=== PATIENT | female | born 1995 | race Caucasian/White ===

== ENCOUNTER → 2022-07-03 07:14 | Outpatient (CLI) | payer OTHER, SELFPAY ==
--- NOTE | 2022-07-03 | DI.MRI.S_ITS ---
PROCEDURE: MR LUMBAR SPINE WO CON INDICATIONS: Dorsalgia, unspecified TECHNIQUE: Noncontrast sagittal T1 spin echo and T2 fast echo, sagittal STIR, and T2 fast spin echo through the lumbar spine. In cases with scoliosis, additional coronal T2 fast spin echo may be performed. COMPARISON: [facility], CR, XR LUMBAR SPINE WITH FLEXION EXTENSION 5 VIEWS, 05/17/2022, 8:13. FINDINGS: Image quality: Excellent. Alignment and Curvature: There is normal bony alignment. 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 Minimal partial segmentation anomaly is noted at the posterior aspect of the T12 vertebral body. Marrow is of normal overall signal. No acute vertebral body compression fractures. Spinal Cord: Conus medullaris terminates at the L1 level. Visualized cord demonstrates normal signal and size. Paraspinous Soft Tissues: No paravertebral masses. The paraspinous musculature is normal in bulk. T12-L1: Normal appearance. L1-L2: Normal appearance. L2-L3: Normal appearance. L3-L4: Congenitally small disc space and partial osseous fusion with congenitally small bilateral neural foramina but no significant external compression or impingement upon the nerve roots. No spinal canal narrowing. L4-L5: Moderate bilateral facet hypertrophy is seen resulting in mild narrowing of the bilateral neural foramina without significant spinal canal stenosis. L5-S1: Small posterior annular fissure with central disc protrusion and mild bilateral facet hypertrophy. There is mild crowding of the bilateral lateral recesses with disc material abutting the traversing S1 nerve roots bilaterally. Mild narrowing of the bilateral neural foramina is seen without significant spinal canal stenosis. IMPRESSION: 1. At L5-S1, posterior annular fissure and central disc protrusion resulting crowding of the lateral recesses with disc material abutting the traversing S1 nerve roots in the lateral recesses bilaterally without definite impingement as positioned on this exam. There is also mild neural foraminal narrowing this level without spinal canal stenosis. 2. At L4-5, moderate facet hypertrophy result in mild narrowing of the bilateral neural foramina without spinal canal stenosis. 3. 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 Approved by: Sylvester Quintero M.D. on 07/03/2022 at 10:24
== END ==
PROVIDERS: Referring Provider Orthopaedic Surgery Orthopaedic Surgery of the Spine; Visit Provider Orthopaedic Surgery Orthopaedic Surgery of the Spine
DX: M51.27 Other intervertebral disc displacement, lumbosacral region (principal); M54.9 Dorsalgia, unspecified; M47.816 Spondylosis without myelopathy or radiculopathy, lumbar region
CPT/HCPCS: 72148

== ENCOUNTER → 2022-08-06 12:43 | Outpatient (CLI) | payer OTHER, SELFPAY ==
--- NOTE | 2022-08-06 | DI.RAD.S_ITS ---
PROCEDURE: FL HIP INJECTION MR/CT LT INDICATIONS: ACUTE LEFT HIP PAIN TECHNIQUE: The indications, alternatives, benefits, risks, and complications of the procedure were explained to the patient. Written informed consent was obtained and placed in the chart. The hip was examined fluoroscopically with the legs fixed in slight internal rotation, and a site for needle placement chosen for entry into the hip joint from an anterior approach. Care was taken to locate the common femoral artery and vein beforehand. The skin was prepped and draped in a sterile fashion, and 1% Lidocaine infiltrated from skin down to joint capsule. A spinal needle was inserted into the joint, and a small amount of iodinated contrast media injected to confirm intra-articular placement of the needle tip. This was followed by approximately 10 mL dilute solution of a gadolinium containing MR contrast agent. The needle was removed and a dressing was applied. The patient was given postprocedural instructions and sent to the MR suite for imaging. COMPARISON: None. FINDINGS: A single fluoroscopic spot image demonstrates intra-articular location of injected iodinated contrast. IMPRESSION: Successful fluoroscopically guided administration of dilute Gadolinium solution into the hip joint for MR arthrogram. Dictated by: Doug Ware M.D. on 08/06/2022 at 16:09 Approved by: Doug Ware M.D. on 08/06/2022 at 16:10
--- NOTE | 2022-08-06 13:15 | DI.MRI.S_ITS ---
PROCEDURE: MR HIP LT W CON INDICATIONS: ACUTE LEFT HIP PAIN TECHNIQUE: After the administration of 10 mL of dilute intra-articular Gadolinium contrast, coronal STIR of the bony pelvis; coronal and oblique axial T1 spin echo with fat saturation, axial T2 fast spin echo with fat saturation, sagittal T1 spin echo with and without fat saturation of the involved hip. COMPARISON: None. FINDINGS: Image quality: Excellent. Bones and joints: Bone marrow of the pelvic ring and proximal femurs show normal signal throughout. No intraosseous lesions or fractures. Mild prominence of superior anterior left femoral head neck junction is seen which can be seen associated with CAM type femoral acetabular impingement. No avascular necrosis of the femoral head. The visualized lower lumbar spine appears normally aligned. The ligamental, neck, and labral plicae appear normal where visualized. Tendons and ligaments: The gluteus medius and minimus tendons appear intact, without associated muscle atrophy. The nearby proximal iliotibial band also appears intact. The iliopsoas tendon appears intact, without adjacent bursal fluid collections or evidence for impingement syndrome. The origin of the hamstring tendon is intact at the ischial tuberosity, as well as the associated sacrotuberous ligament. The straight and reflected heads of the rectus femoris muscle origin appear intact, as well as the conjoint tendon. The ligamentum teres appears intact where visualized. Labrum and cartilage: Subtle area of contrast extension in superior anterior labrum at 12 to 1 o'clock position is seen concerning for subtle superior anterior labral tear. Cartilage surface of the femoral head appears of normal thickness. No paralabral cysts. The alpha angle of the femur is within normal limits at less than 55 degrees. Soft tissues: Visualized muscles demonstrate normal bulk and internal signal. Quadratus femoris muscle demonstrates no internal edema to suggest ischiofemoral impingement. The proximal sciatic neurovascular bundle appears normal adjacent to the hamstring tendons. No free pelvic fluid. Bladder wall thickness is normal. Genitourinary structures and bowel loops appear normal where visualized. IMPRESSION: 1. Mild prominence of superior anterior left femoral head neck junction which can be seen associated with CAM type femoral acetabular impingement. No marrow edema. No fracture or dislocation. No evidence of avascular necrosis of femoral head. 2. Suggestion of subtle superior anterior left hip labral tear at 12 to 1 o'clock position. 3. No gross muscle or tendon signal abnormality. Dictated by: Ehsan Thurston M.D. on 08/06/2022 at 16:31 Approved by: Ehsan Thurston M.D. on 08/06/2022 at 16:32
== END ==
PROVIDERS: Referring Provider Orthopaedic Surgery; Visit Provider Orthopaedic Surgery
DX: M25.552 Pain in left hip (principal)
CPT/HCPCS: 27093; 73722; 77002

== ENCOUNTER → 2022-09-24 10:53 | Outpatient (CLI) | payer OTHER, SELFPAY ==
--- NOTE | 2022-09-24 10:54 | DI.RAD.S_ITS ---
PROCEDURE: XR HIP W PEL IF DONE RT 2V INDICATIONS: Right hip pain TECHNIQUE: AP pelvis with lateral view of the right hip. COMPARISON: [facility], MR, MR HIP LT W CON, 08/06/2022, 13:37. [facility], CR, XR PELVIS WITH LATERAL HIP LEFT, 07/26/2022, 9:04. FINDINGS: Bones: No acute fractures or dislocations. Pelvic ring appears intact. No suspicious bony lesions. Soft tissues: The visualized bowel gas pattern is normal. No suspicious soft tissue calcifications. IMPRESSION: No acute osseous abnormality. If the symptoms persist, consider cross sectional imaging such as MRI or CT for further assessment. Approved by: Sylvester Quintero M.D. on 09/24/2022 at 13:09
== END ==
PROVIDERS: Referring Provider Anesthesiology; Visit Provider Anesthesiology
DX: M25.551 Pain in right hip (principal); M25.552 Pain in left hip; M79.18 Myalgia, other site; M54.50 Low back pain, unspecified; M54.6 Pain in thoracic spine
CPT/HCPCS: 20552; 73502; 76942; 99213; J3301

== ENCOUNTER → 2022-10-15 11:08 | Outpatient (CLI) | payer OTHER, SELFPAY ==
[2022-10-15 11:59] LABS: C-Reactive Protein Quant < 0.5 mg/dL (<1.0)
[2022-10-15 12:00] LABS: Rheumatoid Factor 9.3 IU/mL (<12.0)
[2022-10-15 12:25] LABS: Erythrocyte Sedimentation Rate 4 MM/HR (0-20)
[2022-10-17 17:13] LABS: CCP Antibodies IgG/IgA 6 units (0-19)
[2022-10-18 18:12] LABS: ANA Screen, IFA Positive (.)
== END ==
PROVIDERS: PCP Physician Assistant; Referring Provider Anesthesiology; Visit Provider Anesthesiology
DX: M51.24 Other intervertebral disc displacement, thoracic region (principal); M25.551 Pain in right hip
CPT/HCPCS: 36415; 85651; 86038; 86140; 86200; 86430; 99214

== ENCOUNTER → 2022-10-22 16:16 | Outpatient (CLI) | payer OTHER, SELFPAY ==
--- NOTE | 2022-10-22 16:20 | DI.MRI.S_ITS ---
PROCEDURE: MR HIP RT WO CON INDICATIONS: Chronic right hip pain TECHNIQUE: Noncontrast coronal T1 spin echo and STIR through the bony pelvis. Coronal and axial T2 fast spin echo with fat saturation, sagittal T1 spin echo, and oblique axial T2 fast spin echo with fat saturation through the hip. COMPARISON: [facility], CR, XR HIP W PEL IF DONE RT 2V, 09/24/2022, 10:54. FINDINGS: Image quality: Excellent. Bones and joints: Bone marrow of the pelvic ring and proximal femurs show normal signal mildhout. No intraosseous lesions or fractures. No avascular necrosis of the femoral heads. Mild disc desiccation and facet hypertrophy in the included lumbar spine. Tendons and ligaments: The gluteus medius and minimus tendons appear intact, without associated muscle atrophy. The proximal iliotibial band appears intact. The iliopsoas tendon appears intact, without adjacent bursal fluid collections. The origin of the hamstring tendon demonstrates mild tendinosis. The direct and indirect heads of the rectus femoris muscle origin appear intact. Labrum and cartilage: There is nondisplaced tearing of the anterior to superior labrum. A small paralabral cyst is seen anteriorly measuring approximately 8 x 3 mm. Cartilage surface of the femoral head appears of normal thickness. There is normal morphology of the femoral head and the acetabulum. Soft tissues: Visualized muscles demonstrate normal bulk and internal signal. Quadratus femoris muscle demonstrates no internal edema to suggest ischiofemoral impingement. The proximal sciatic neurovascular bundle appears intact. A 4 cm left ovarian cyst and a small amount of free fluid in the pelvis are nonspecific and may be physiologic. IMPRESSION: 1. Nondisplaced tearing of the anterior to superior right acetabular labrum with an 8 x 3 mm anterior paralabral cyst. 2. Mild proximal hamstring tendinosis. 3. Left ovarian 4 cm simple cyst. Small amount of free fluid in the pelvis is likely physiologic. Approved by: Sylvester Quintero M.D. on 10/23/2022 at 9:24
== END ==
PROVIDERS: PCP Physician Assistant; Referring Provider Anesthesiology; Visit Provider Anesthesiology
DX: S73.191A Other sprain of right hip, initial encounter (principal); N83.292 Other ovarian cyst, left side; M25.551 Pain in right hip
CPT/HCPCS: 73721

== ENCOUNTER 2022-10-30 16:31 | Emergency (ER) | payer OTHER, SELFPAY ==
[2022-10-30] VITALS (12 sets, daily range): BP systolic 119–135; BP diastolic 60–92; PULSE 58–78; RESP 18; TEMP 36.5; O2SAT 97–100; BMI 22.1
[2022-10-30 17:55] LABS: Bacteria Urine None Seen; Culture Indicated Urine Cult Not Indicated; RBC Urine 1-5/HPF (0-5/HPF); Squamous Epithelial Cell Urine 1-5 /HPF (0-5/HPF); WBC Urine None Seen (0-5/HPF)
[2022-10-30 17:57] LABS: Add Manual Diff / Slide Review NO; Basophils Absolute Auto 0 /uL (0-100); Basophils Percent Auto 0.6 % (0-2); Eosinophils Absolute Auto 100 /uL (0-450); Hematocrit 38.9 % (36-46); Hemoglobin 13.2 g/dL (12.0-16.0); Lymphocytes Absolute Auto 2100 /uL (1100-4500); Lymphocytes Percent Auto 39.4 % (25-40); Mean Corpuscular HGB Conc 33.9 % (30-36); Mean Corpuscular Hemoglobin 28.6 PG (26-34); Mean Corpuscular Volume 84.3 fL (80-100); Monocytes Absolute Auto 300 /uL (0-900); Monocytes Percent Auto 4.9 % (3-14); Neutrophils Absolute Auto 2900 /uL (1500-7000); Neutrophils Percent Auto 54.1 % (50-75); Platelet Count 226 X10^3/uL (150-400); Red Blood Cell Count 4.62 X10^6/uL (4.0-5.2); Red Cell Distribution Width 13.1 % (11.6-14.8); White Blood Cell Count 5.3 X10^3/uL (4.5-11.0)
[2022-10-30 18:17] LABS: BUN Creatinine Ratio 15.9 (6-22); Blood Urea Nitrogen 10 mg/dL (7-17); Calcium 9.2 mg/dL (8.4-10.2); Carbon Dioxide 27 mmol/L (22-32); Chloride 103 mmol/L (98-107); Estimated Glomerular Filt Rate > 60 mL/min (>60); Glucose 86 mg/dL (70-100); HEMOLYSIS < 15 (0-50); Potassium 3.6 mmol/L (3.4-5.1); Sodium 136 mmol/L (137-145)
[2022-10-30 18:21] LABS: Pregnancy Test Serum,Qual Negative (Negative)
--- NOTE | 2022-10-30 20:38 | ED_ITS ---
HPI - General Adult General Chief complaint: Vaginal Bleeding Stated complaint: excess vag bleeding for last month Time Seen by Provider: 10/30/22 20:37 Source: patient Mode of arrival: Family Vehicle History of Present Illness HPI narrative: 26-year-old woman with history of possible rheumatoid disorder with spine and hip pain scheduled for epidural injection tomorrow comes in with vaginal bleeding since September 26. Based on tracking basal body temperatures and ovulation she notes that she has not ovulated in the last 3 months. She is up-to-date on pelvic exam and routine gynecologic screening. She is not complaining of fevers or chills. 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, thoracic Femoral acetabular impingement Herniated intervertebral disc of lumbar spine Herniation of intervertebral disc of thoracic region Labral tear of hip joint Left hip pain Low back pain Lumbar facet arthropathy Myofascial pain Right hip pain Thoracic back pain Social History Smoking Status: Never smoker Smoking Status: Never smoker alcohol intake frequency: 0-2 drinks per day Substance Use Type: does not use Exam Initial Vital Signs Initial Vital Signs: Vital Signs Temperature 97.7 F 10/30/22 16:51 Pulse Rate 78 10/30/22 16:51 Respiratory Rate 18 10/30/22 16:51 Blood Pressure 135/91 H 10/30/22 16:51 Pulse Oximetry 100 10/30/22 16:51 Oxygen Delivery Method Room Air 10/30/22 16:51 General: Healthy appearing, in no acute distress. Able to give a complete and coherent history. Well-nourished well-developed HEENT: Moist mucous membranes, normal sclera with reactive pupils, Respiratory: Lungs are clear to auscultation, no wheezing no rales no rhonchi. Full and symmetrical air movement Cardiac: Regular rate and rhythm no murmurs no bruits Abdomen: Soft, nontender, mild pelvic tenderness without rebound or guarding good bowel tones, no flank pain Skin: Warm and dry, no rashes Neurologic: Grossly neurologically intact with no obvious asymmetries or abnormalities Extremities: No trauma, well perfused Psych: Cooperative, appropriate insight and affect Course Orders Ordered: ED Orders 10/30/22 17:05 Urine Microscopic Stat 10/30/22 17:45 Basic Metabolic Panel Stat Complete Blood Count AUTO DIFF Stat Test Serum,Qual Stat TSH w/ Reflex to FT4 Stat Type and Screen Stat 10/30/22 21:04 US pelvic complete Stat Sodium Chloride (Normal Saline 0.9%) 1,000 mls @ 1,000 mls/hr IV BOLUS ONE Stop: 10/30/22 21:55 Last Admin: 10/30/22 21:09 Dose: 1,000 mls/hr Documented By: STAR Discontinued Medications Ketorolac Tromethamine (Ketorolac 30 Mg/Ml Vial) 15 mg IV NOW ONE Stop: 10/30/22 20:57 Last Admin: 10/30/22 21:10 Dose: 15 mg Documented By: STAR Medroxyprogesterone Acetate (Medroxyprogesterone Acetate 10 Mg Tablet) 20 mg PO NOW ONE Stop: 10/30/22 20:57 Last Admin: 10/30/22 21:25 Dose: 20 mg Documented By: STAR Vital Signs Vital signs: Vital Signs - 8 hr 10/30/22 16:51 10/30/22 18:43 10/30/22 18:43 Temperature 97.7 F Pulse Rate 78 Respiratory Rate 18 Blood Pressure 135/91 H 128/73 Pulse Oximetry 100 100 Oxygen Delivery Method Room Air 10/30/22 18:44 10/30/22 18:44 10/30/22 19:00 Temperature Pulse Rate 69 Respiratory Rate Blood Pressure 127/75 119/74 Pulse Oximetry 99 Oxygen Delivery Method 10/30/22 19:00 Temperature Pulse Rate 70 Respiratory Rate Blood Pressure Pulse Oximetry 100 Oxygen Delivery Method Medical Decision Making Lab Data 10/30/22 17:45 10/30/22 17:45 Labs: Lab Results 10/30/22 10/30/22 10/30/22 Range/Units 17:05 17:45 17:45 WBC 5.3 (4.5-11.0) X10^3/uL RBC 4.62 (4.0-5.2) X10^6/uL Hgb 13.2 (12.0-16.0) g/dL Hct 38.9 (36-46) % MCV 84.3 (80-100) fL MCH 28.6 (26-34) PG MCHC 33.9 (30-36) % RDW 13.1 (11.6-14.8) % Plt Count 226 (150-400) X10^3/uL Neut % (Auto) 54.1 (50-75) % Lymph % (Auto) 39.4 (25-40) % [place] % (Auto) 4.9 (3-14) % Eos % (Auto) 1.0 L (2-4) % Baso % (Auto) 0.6 (0-2) % Neut # (Auto) 2900 (3739-2650) /uL Lymph # (Auto) 2100 (8476-9823) /uL [place] # (Auto) 300 (0-900) /uL Eos # (Auto) 100 (0-450) /uL Baso # (Auto) 0 (0-100) /uL Sodium (137-145) mmol/L Potassium (3.4-5.1) mmol/L Chloride (98-107) mmol/L Carbon Dioxide (22-32) mmol/L BUN (7-17) mg/dL Creatinine (0.52-1.04) mg/dL Estimated GFR (>60) mL/min BUN/Creatinine Ratio (6-22) Glucose (70-100) mg/dL Calcium (8.4-10.2) mg/dL Serum , Qual (Negative) Urine RBC 1-5/hpf (0-5/HPF) Urine WBC None seen (0-5/HPF) Ur Squamous Epith Cells 1-5 /hpf (0-5/HPF) Urine Bacteria None seen (None) Ur Culture Indicated? Cult not indicated Blood Type A Positive Antibody Screen Negative 10/30/22 10/30/22 Range/Units 17:45 17:45 WBC (4.5-11.0) X10^3/uL RBC (4.0-5.2) X10^6/uL Hgb (12.0-16.0) g/dL Hct (36-46) % MCV (80-100) fL MCH (26-34) PG MCHC (30-36) % RDW (11.6-14.8) % Plt Count (150-400) X10^3/uL Neut % (Auto) (50-75) % Lymph % (Auto) (25-40) % [place] % (Auto) (3-14) % Eos % (Auto) (2-4) % Baso % (Auto) (0-2) % Neut # (Auto) (9149-0217) /uL Lymph # (Auto) (6549-7789) /uL [place] # (Auto) (0-900) /uL Eos # (Auto) (0-450) /uL Baso # (Auto) (0-100) /uL Sodium 136 L (137-145) mmol/L Potassium 3.6 (3.4-5.1) mmol/L Chloride 103 (98-107) mmol/L Carbon Dioxide 27 (22-32) mmol/L BUN 10 (7-17) mg/dL Creatinine 0.63 (0.52-1.04) mg/dL Estimated GFR > 60 (>60) mL/min BUN/Creatinine Ratio 15.9 (6-22) Glucose 86 (70-100) mg/dL Calcium 9.2 (8.4-10.2) mg/dL Serum , Qual Negative (Negative) Urine RBC (0-5/HPF) Urine WBC (0-5/HPF) Ur Squamous Epith Cells (0-5/HPF) Urine Bacteria (None) Ur Culture Indicated? Blood Type Antibody Screen Point of Care Testing Test Results Negative Urine Dip Bedside Urine Glucose Negative Bedside Urine Bilirubin - Negative Bedside Urine Ketone - Negative Urine Specific [place] 1.000 Bedside Urine Occult Blood ++ Bedside Urine pH 6.5 Bedside Urine Protein - Negative Bedside Urine Urobilinogen - Negative Bedside Urine Nitrite - Negative Bedside Urine Leukocytes - Negative Esterase Point of care testing: Point of Care Testing Test Results Negative Urine Dip Bedside Urine Glucose Negative Bedside Urine Bilirubin - Negative Bedside Urine Ketone - Negative Urine Specific [place] 1.000 Bedside Urine Occult Blood ++ Bedside Urine pH 6.5 Bedside Urine Protein - Negative Bedside Urine Urobilinogen - Negative Bedside Urine Nitrite - Negative Bedside Urine Leukocytes - Negative Esterase MDM Narrative Medical decision making narrative: CC: Heavy vaginal bleeding since September 26 Complicating co-morbidities: Current workup for rheumatoid issues and spine and hip pain with epidural injection anticipated for tomorrow Data collected from: patient, Social determinants of health that may influence the patients condition: Access to care has been challenging Differential considered: Anovulatory bleeding, thyroid issues, uterine fibroids or polyps, Exam documented above, pertinent findings include: Exam is benign, she has mild low pelvic cramping without rebound or guarding Lab Test results independently reviewed as above. Pertinent findings: CBC is unremarkable with no leukocytosis and H&H 13.2 and 38.9 Chemistries are unremarkable Urine and serum is negative Imaging studies independently reviewed: preliminary US. Small amount of fluid in the endometrial canal, bilateral cysts in ovaries likely physiologic. Treatments: Parenteral fluids, Toradol and oral medroxyprogesterone Discussion: 26-year-old woman with likely anovulatory bleeding based on basal body temperature monitoring. No signs of significant anemia or pelvic pathology on ultrasound. Will place her on a progesterone taper and she will need to follow-up with OBGYN. I do not believe that the vaginal bleeding and medroxyprogesterone will complicate the anticipated epidural injection scheduled for tomorrow. At this point she is safe for discharge home Discharge Plan Departure Patient Disposition: Home Clinical Impression: Anovulatory (dysfunctional uterine) bleeding Instructions: DI for Vaginal Bleeding Activity Restrictions/Additional Instructions: Thank you for coming in today Your workup in the emergency department is quite reassuring. You are not anemic, the amount of iron that you are eating is keeping pace with the amount of blood that you are losing. I did add a thyroid test to your blood work today and that is currently pending, your primary doctor can follow-up on this Recommendations at this time are to treat this as anovulatory bleeding with tapering levels of progesterone over the next number of days 20mg PO q2 until bleeding stops or slows Then 20mg q4 x48 Then 20mg q6 x48 Then 20mg q8 x48 Then 20mg q12 x 48 Then 20mg qday x 7days This will stabilize the lining of your uterus to stop the bleeding. When you stop the progesterone you should expect to have a relatively normal menstrual cycle. You do need to follow-up with an OBGYN for definitive diagnosis and treatment of this. If you want to continue with your steroid injection scheduled for tomorrow, this bleeding and progesterone dosing should not interfere with that If you find that you are getting worse or develop any new symptoms, please feel free to return to the emergency department for further evaluation. Prescriptions: New medroxyprogesterone 10 mg tablet 20 mg PO DAILY Qty: 82 0RF Rx Instructions: 20mg PO q2 until bleeding stops or slows Then 20mg q4 x48 Then 20mg q6 x48 Then 20mg q8 x48 Then 20mg q12 x 48 Then 20mg qday x 7days No Action diazepam 5 mg tablet 5 mg PO ONCE PRN (Reason: anxiety) Qty: 1 0RF Rx Instructions: Take 1 hour prior to procedure Referrals: Suzie Araujo PA-C [Primary Care Provider] - Stand Alone Forms: Patient Portal/API
--- NOTE | 2022-10-30 21:04 | DI.US.S_ITS ---
PROCEDURE: US PELVIC COMPLETE INDICATIONS: BLEEDING X 5 WEEKS TECHNIQUE: Real-time scanning was performed of the pelvic organs, with image documentation. Additional endovaginal scanning was necessary due to incomplete visualization of the adnexal and endometrial structures by transabdominal scanning. COMPARISON: None. FINDINGS: Uterus: Uterus is anteverted and measures 8.1 x 3.1 x 4.6 cm. Endometrium measures up to 0.3 cm. A small amount of heterogeneous endometrial fluid is present. No internal vascularity within the endometrium. Ovaries: The right ovary measures 2.2 x 3.1 x 2.1 cm, with a calculated ovarian volume of 7.5 cc. The left ovary measures 4.1 x 3.5 x 1.5 cm, with a calculated ovarian volume of 11.6 cc. The ovaries have a normal sonographic appearance. Less than 12 follicles can be seen in each ovary. No adnexal masses are seen. There is an involuting anechoic cyst within the left ovary measuring up to 2.8 x 1.7 x 3.6 cm. A simple appearing thin wall anechoic cyst is demonstrated within the right ovary measuring up to 1.5 x 1.5 x 1.4 cm. There is patent arterial flow demonstrated within the ovaries. Other: No pathologic free abdominal or pelvic fluid. IMPRESSION: 1. Small amount of nonspecific heterogeneous endometrial fluid. Endometrium appears normal in thickness without internal vascularity. We strive to produce accurate, complete, and clear reports of imaging services. To assist us in improving patient care, this report was composed using standard report templates and voice recognition software. Therefore, it may contain abnormal punctuation, insertions and/or omissions. Occasional wrong-word or sound-alike substitutions may occur. Though we review the report and make efforts to correct it, we do recommend that the report be read carefully in proper context to recognize any text inaccuracies. Dictated by: Junior Melendrez M.D. on 10/30/2022 at 23:40 Approved by: Junior Melendrez M.D. on 10/30/2022 at 23:43
[2022-10-30] MEDS: SODIUM CHLORIDE 0.9% 1,000 ML 1000 ML IV (21:09)
[2022-10-30] MEDS: KETOROLAC 30 MG/ML VIAL 15 MG IV (21:10)
[2022-10-30] MEDS: MEDROXYPROGESTERONE ACETATE 10 MG TABLET 20 MG PO ×2 (21:25→22:19)
== END 2022-10-30 22:24 | disposition home or self-care (01) ==
PROVIDERS: Emergency Medicine; Emergency Provider Emergency Medicine; PCP Physician Assistant
DX: N97.0 Female infertility associated with anovulation (principal)
CPT/HCPCS: 36415; 76830; 76856; 80048; 81003; 81015; 81025; 84443; 84703; 85025; 86850; 86900; 86901; 93975; 96361; 96374; 99284; J1885

== ENCOUNTER 2022-10-31 15:28 | Outpatient (CLI) | payer OTHER, SELFPAY ==
--- NOTE | 2022-10-31 15:33 | DI.RAD.S_ITS ---
PROCEDURE: PAIN L INTERLAMINAR/CAUDAL INJ INDICATIONS: THORACIC DISC HERNIATION COMPARISON: [facility], MR, MR LUMBAR SPINE WO CON, 07/03/2022, 7:39. FINDINGS: Fluoroscopic spot filming was performed to verify placement of a spinal needle at the T12-L1 level(s), as labeled on the films. Appropriate location(s) of the needle tip(s) was confirmed by injection of iodinated contrast. IMPRESSION: Normal intraoperative examination. Dictated by: Terrell Abbasi M.D. on 11/01/2022 at 12:05 Approved by: Terrell Abbasi M.D. on 11/01/2022 at 12:05
[2022-10-31 15:40] VITALS: BP 142/76; PULSE 85; RESP 16; TEMP 37.2; O2SAT 100
[2022-10-31 16:08] VITALS: BP 124/56; PULSE 76; RESP 26; O2SAT 99
[2022-10-31] MEDS: IOPAMIDOL 15 ML VIAL 3 ML INJ (16:09)
[2022-10-31] MEDS: DEXAMETHASONE 10 MG/ML VIAL INJ (16:09)
[2022-10-31 16:13] VITALS: BP 119/56; PULSE 81; RESP 26; O2SAT 100
[2022-10-31 16:16] VITALS: BP 122/59; PULSE 88; RESP 24; O2SAT 100
--- NOTE | 2022-10-31 16:21 | P.PCN_ITS ---
Date/Time/Diagnoses Date of procedure: 10/31/22 Time of procedure: 16:00 Procedure Notes Physician: Juan Franks Total Fluoroscopy time (seconds): 12 Total sedation minutes: 0 Procedure in detail & Post-procedure care: T12-L1 Interlaminar Epidural Steroid Injection Indications: Ina is presenting for treatment of lumbar radiculopathy with low back and leg pain. Preoperative diagnosis: Lumbar radiculopathy Postoperative diagnosis: Same Focused Examination: Ax3 Mood and affect are normal Vital Signs: VSS ASA: 1 Consent: Following review of allergies and potential side effects/complications, including, but not necessarily limited to, infection, allergic reaction, local tissue breakdown, stroke, temporary or permanent nerve injury, paralysis, and possible , the patient indicated that they understood and agreed to pr oceed.? An informed consent document was signed by the patient, witnessed by a nurse and placed in the patient's chart.? Additionally, other treatment options including medications and physical therapy were reviewed with the patient. All questions were answered. Site was then marked. Anesthesia: Local and oral Valium prior to procedure Position: Prone Monitoring: NIBP, Pulse oximetry, 3 lead EKG Needle used: 18 G 3.5? Tuohy Contrast: Isovue 300M Injectate: Dexamethasone 10 mg with 1% lidocaine 2 mL Technique: The skin was prepped with chloraprep and then draped in a sterile fashion. Time out was performed as per protocol. Oxygen applied via NC. Skin and subcutaneous structures of the needle entry site was then infiltrated with 3 mL of lidocaine 1%. Under AP, lateral and contralateral oblique fluoroscopic cont rol, the Tuohy needle was guided into the T12-L1 epidural space. The space was accessed with loss of resistance technique. Isovue 300M was then injected and the spread was consistent with the epidural space. There was no evidence for intravascular or intrathecal uptake. After negative aspiration, the above- mentioned injectate was then slowly administered and the needle withdrawn. The patient expressed no unusual discomfort or paresthesias during the injection. Band-Aids applied to injection sites. EBL: less than 1 ml Complications: None Post Procedure: Patient was taken to the recovery and monitored. The patient was provided a Pain Log to continue to record the patient's response to the target- specific procedure prior to the patient's follow-up visit with the referring physician. Patient was stable upon discharge. Detailed post procedure instructions were provided. Patient was asked to call in the event of worsening pain, fever, weakness, numbness or bladder or bowel incontinence.
[2022-10-31 16:23] VITALS: BP 127/57; PULSE 68; RESP 16; O2SAT 100
== END 2022-10-31 16:25 | disposition home or self-care (01) ==
PROVIDERS: PCP Physician Assistant; Referring Provider Anesthesiology; Visit Provider Anesthesiology
DX: M54.15 Radiculopathy, thoracolumbar region (principal)
CPT/HCPCS: 62323; J1100

== ENCOUNTER 2023-09-25 14:55 | Outpatient (CLI) | payer OTHER, SELFPAY ==
[2023-09-25] VITALS (10 sets, daily range): BP systolic 89–145; BP diastolic 42–77; PULSE 67–81; RESP 14–23; TEMP 36.8; O2SAT 98–100
--- NOTE | 2023-09-25 15:16 | P.PCN_ITS ---
Date/Time/Diagnoses Date of procedure: 09/25/23 Time of procedure: 15:30 Procedure Notes Physician: Juan Franks Total Fluoroscopy time (seconds): 19 Total sedation minutes: 12 Procedure in detail & Post-procedure care: Right T11-12 and T12-L1 Intra-articular Lumbar Facet Injection(s) Indications: Ina is presenting for treatment of lumbar facet arthropathy with low back pain. Preoperative diagnosis: Right thoracic spondylosis Postoperative diagnosis: Same Focused Examination: Ax3 Mood and affect are normal Vital Signs: VSS ASA: 1 Consent: Following review of allergies and potential side effects/complications, including, but not necessarily limited to, infection, allergic reaction, local tissue breakdown, stroke, temporary or permanent nerve injury, paralysis, and possible , the patient indicated that they understood and agreed to proceed.? An informed consent document was signed by the patient, witnessed by a nurse and placed in the patient's chart.? Additionally, other treatment options including medications and physical therapy were reviewed with the patient. All questions were answered. Site was then marked. Anesthesia: After review of previous anesthetic history and IV conscious sedation, the patient was deemed safe to proceed with today's procedure with IV conscious sedation. IV sedation was accomplished with midazolam 2 mg administered by the RN after order by Dr. Franks. Sedation was titrated to patient comfort during the course of the procedure. Patient remained responsive to all verbal commands. Position: Prone Monitoring: NIBP, Pulse oximetry, 3 lead EKG Needle used: 22 ga, 3.5 in spinal needle Contrast: Isovue 300-M 0.3 mL per site Injectate: Depomedrol 20 mg (80 mg/ml) with 0.5% Bupivacaine 0.5 mL per site Technique: The skin was prepped with chloraprep and then draped in a sterile fashion. Time out was performed as per protocol. Oxygen applied via NC. Skin and subcutaneous structures of the needle entry site(s) were then infiltrated with 3 mL of lidocaine 1%. Under AP, ipsilateral oblique and lateral fluoroscopic control, the spinal needle was guided into the posterior aspect of the right T12-L1 intra-articular space. Isoview 300-M was then injected and the spread was consistent with intra-articular placement. There was no evidence for intravascular or extracapsular uptake. After negative aspiration, the above- mentioned injectate was then slowly administered and the needle withdrawn. The patient expressed no unusual discomfort or paresthesias during the injection. The above procedure was then repeated for the right T11-12. Band-Aids applied to injection sites. EBL: less than 1 ml Complications: None Post Procedure: Patient was taken to the recovery and monitored. The patient was provided a Pain Log to continue to record the patient's response to the target- specific procedure prior to the patient's follow-up visit with the referring physician. Patient was stable upon discharge. Detailed post procedure instructions were provided. Patient was asked to call in the event of worsening pain, fever, weakness, numbness or bladder or bowel incontinence.
[2023-09-25] MEDS: MIDAZOLAM 2 MG/2 ML VIAL IV (15:30)
--- NOTE | 2023-09-25 15:30 | DI.RAD.S_ITS ---
PROCEDURE: PAIN C/T FACET INJ/BLK 1ST L INDICATIONS: FACET ARTHROPATHY COMPARISON: None. FINDINGS: Fluoroscopic spot filming was performed to verify placement of spinal needles at the right T11-12 and T12-L1 level(s), as labeled on the films. Appropriate location(s) of the needle tip(s) was confirmed by injection of iodinated contrast. IMPRESSION: Fluoroscopic guidance for facet joint injections. Dictated by: Doug Ware M.D. on 09/26/2023 at 8:42 Approved by: Doug Ware M.D. on 09/26/2023 at 8:43
[2023-09-25] MEDS: iopamidoL 15 ML VIAL 3 ML INJ (15:33)
[2023-09-25] MEDS: BUPIVACAINE 0.5% (PF) 10 ML VIAL 5 ML INJ (15:34)
[2023-09-25] MEDS: methylPREDNISolone acetate 80 MG/ML VIAL INJ (15:35)
== END 2023-09-25 16:02 | disposition home or self-care (01) ==
LOC: RAD 14:56
PROVIDERS: Referring Provider Anesthesiology; Visit Provider Anesthesiology
DX: M47.814 Spondylosis without myelopathy or radiculopathy, thoracic region (principal)
CPT/HCPCS: 64490; 64491; 99152; J1010; J2250

== ENCOUNTER 2024-09-12 19:00 | Emergency (ER) | payer OTHER, SELFPAY ==
[2024-09-12 19:09] VITALS: BP 143/65; PULSE 77; RESP 18; TEMP 36.7; O2SAT 100; BMI 22.8
[2024-09-12 19:51] LABS: Appearance Urine UA CLEAR; Bilirubin Urine UA NEGATIVE (NEGATIVE); Color Urine UA YELLOW; Glucose Urine UA NEGATIVE (Negative); Ketones Urine UA 3+ (NEGATIVE); Leukocyte Esterase Urine UA NEGATIVE (NEGATIVE); Nitrite Urine UA NEGATIVE (Negative); Occult Blood Urine UA 2+ (Negative); Protein Urine UA TRACE (Negative); Specific Gravity Urine UA >=1.030 (1.000-1.035)
[2024-09-12 19:53] LABS: pH Urine UA 5.5 (4.5-8.0)
[2024-09-12 20:03] LABS: Bacteria Urine Few (2-10); RBC Urine None Seen (0-5/HPF); Urine Volume 10mL (spun); WBC Urine 1-5/HPF (0-5/HPF)
[2024-09-12 20:04] LABS: Culture Indicated Urine Cult Not Indicated; Squamous Epithelial Cell Urine 1-5 /HPF (0-5/HPF)
--- NOTE | 2024-09-12 20:08 | ED.ABDPAIN ---
HPI - Abdominal Pain General Chief Complaint: Abdominal Pain Stated Complaint: to much ibuprofen, add pain, blood in stool,nausea Time Seen by Provider: 09/12/24 20:08 Source: patient Mode of arrival: Ambulatory History of Present Illness HPI narrative: 28-year-old female presenting from home for evaluation of diarrhea and bright red blood per rectum. She states that she just completed a marathon earlier today, she states that she is worried because she took for 200 mg Motrin during the race due to exacerbation of her right hip pain. She states that after the race she had multiple episodes of loose diarrhea and noticed some bright red blood to it, she states that she is also feeling slightly nauseous but no actual abdominal pain. She states that she is worried that she might have overdosed on Motrin otherwise she is not complaining of any other symptoms. Related Data Home Medications ?Medication ?Instructions ?Recorded ?Confirmed No Known Home Medications 10/22/23 10/22/23 Allergies Allergy/AdvReac Type Severity Reaction Status Date / Time No Known Drug Allergies Allergy Verified 09/12/24 19:09 Review of Systems Review of Systems Narrative: General: Denies fever, chills, weight loss HEENT: Denies headache, eye drainage, eye irritation, head trauma, sore throat, voice change Cardiovascular: Denies any chest pain, palpitations, tachycardia Respiratory: Denies any shortness of breath, cough, wheeze, stridor GI/: Positive diarrhea, nausea, bright red blood per rectum Denies any abdominal pain, delete vomiting, melanotic stools, urinary frequency, urinary retention, dysuria, hematuria MSK: Denies any joint pain, muscle pains, swelling Skin: Denies any rashes, lesions, discoloration Neuro: Denies any headache, lightheadedness, dizziness, fainting, weakness Psych: Denies SI/HI Patient History Medical History Thoracic spondylosis Chronic pain Thoracic back pain Low back pain Right hip pain Labral tear of hip joint Femoral acetabular impingement Left hip pain 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, thoracic Lumbar facet arthropathy Herniated intervertebral disc of lumbar spine Myofascial pain Surgical History [place] teeth extracted History of root canal procedure H/O abdominoplasty Social History Smoking Status: Never smoker Smoking Status: Never smoker alcohol intake frequency: 0-2 drinks per day Exam Narrative Exam Narrative: General: Cooperative, well-developed, not in acute distress HEENT: Normocephalic, atraumatic, PERRLA, normal sclera, eyelids normal Neck: Active full range of motion, atraumatic Chest: Normal to inspection, negative crepitus, no overlying erythema ecchymosis Respiratory: Normal respiratory effort, not in acute respiratory distress, clear to auscultation bilaterally negative cough, wheeze, tachypnea, rhonchi, rales Cardiology: Regular rate rhythm negative gallop, murmur, rubs GI/: No tenderness to palpation, soft, non rigid, normal to inspection, exam deferred MSK: Full active range of motion in all 4 extremities, atraumatic, no tenderness to palpation of any bony prominences Skin: No rashes or lesions noted Neuro: Alert awake oriented x3, moves all 4 extremities spontaneously, cranial nerves intact, able to answer all questions appropriately follows commands appropriately Psych: Cooperative, negative suicidal or homicidal ideations Initial Vital Signs Initial Vital Signs: Vital Signs Temperature 98.0 F 09/12/24 19:09 Pulse Rate 77 09/12/24 19:09 Respiratory Rate 18 09/12/24 19:09 Blood Pressure 143/65 H 09/12/24 19:09 Pulse Oximetry 100 09/12/24 19:09 Oxygen Delivery Method Room Air 09/12/24 19:09 Course Orders Ordered: ED Orders 09/12/24 19:33 GI Panel (Film Array) Stat Urinalysis and Microscopic Stat 09/12/24 20:13 CBC Auto Diff [Complete Blood Count AUTO DIFF] Stat CMP [Comprehensive Metabolic Panel] Stat Lipase Stat MAG [Magnesium] Stat Discontinued Medications Famotidine (Famotidine 20 Mg/2 Ml Vial) 20 mg IV NOW ONE Stop: 09/12/24 20:09 Last Admin: 09/12/24 20:57 Dose: 20 mg Documented By: ZA Sodium Chloride (Normal Saline 0.9%) 1,000 mls @ 1,000 mls/hr IV BOLUS ONE Stop: 09/12/24 21:07 Last Admin: 09/12/24 20:57 Dose: 1,000 mls/hr Documented By: AI Ondansetron HCl (Ondansetron 4 Mg/2 Ml Inj) 4 mg IV NOW ONE Stop: 09/12/24 20:09 Last Admin: 09/12/24 20:57 Dose: 4 mg Documented By: ZA Vital Signs Vital signs: Vital Signs - 8 hr 09/12/24 19:09 09/12/24 20:50 09/12/24 20:50 Temperature 98.0 F Pulse Rate 77 66 Respiratory Rate 18 Blood Pressure 143/65 H 124/80 Pulse Oximetry 100 99 Oxygen Delivery Method Room Air 09/12/24 20:59 09/12/24 21:00 Temperature Pulse Rate 69 Respiratory Rate 16 Blood Pressure 115/72 Pulse Oximetry 98 Oxygen Delivery Method MDM - Abdominal Pain Differential Diagnosis Differential diagnosis: Likely gastroenteritis, pancreatitis and other (Urinary tract infection, C diff, norovirus, electrolyte abnormality) Lab Data 09/12/24 20:13 09/12/24 20:13 Labs: Lab Results 09/12/24 09/12/24 Range/Units 19:33 20:13 WBC 12.7 H (4.5-11.0) X10^3/uL RBC 4.83 (4.0-5.2) X10^6/uL Hgb 13.6 (12.0-16.0) g/dL Hct 40.4 (36-46) % MCV 83.6 (80-100) fL MCH 28.1 (26-34) PG MCHC 33.6 (30-36) % RDW 12.6 (11.6-14.8) % Plt Count 234 (150-400) X10^3/uL Neut % (Auto) 92.8 H (50-75) % Lymph % (Auto) 4.5 L (25-40) % [place] % (Auto) 2.5 L (3-14) % Eos % (Auto) 0.0 L (2-4) % Baso % (Auto) 0.2 (0-2) % Neut # (Auto) 89427 H (8158-0059) /uL Lymph # (Auto) 600 L (8079-5987) /uL [place] # (Auto) 300 (0-900) /uL Eos # (Auto) 0 (0-450) /uL Baso # (Auto) 0 (0-100) /uL Sodium 136 L (137-145) mmol/L Potassium 4.3 (3.4-5.1) mmol/L Chloride 104 (98-107) mmol/L Carbon Dioxide 23 (22-32) mmol/L BUN 18 H (7-17) mg/dL Creatinine 0.71 (0.52-1.04) mg/dL Estimated GFR > 60 (>60) mL/min BUN/Creatinine Ratio 25.4 H (6-22) Glucose 129 H (70-99) mg/dL Calcium 9.6 (8.4-10.2) mg/dL Magnesium 1.8 (1.6-2.3) mg/dL Total Bilirubin 1.0 (0.2-1.3) mg/dL AST 99 H (14-36) IU/L ALT 40 H (<35) IU/L Alkaline Phosphatase 47 (38-126) U/L Total Protein 8.2 (6.3-8.2) g/dL Albumin 4.7 (3.5-5.0) g/dL Globulin 3.5 (1.7-4.1) g/dL Albumin/Globulin Ratio 1.3 (1.0-2.8) Lipase 31 (23-300) U/L Urine Color Yellow Urine Appearance Clear Urine pH 5.5 (4.5-8.0) Ur Specific [place] >=1.030 H (1.000-1.035) Urine Protein Trace H (Negative) Urine Glucose (UA) Negative (Negative) g/dL Urine Ketones 3+ H (NEGATIVE) Urine Occult Blood 2+ H (Negative) Urine Nitrate Negative (Negative) Urine Bilirubin Negative (NEGATIVE) Urine Urobilinogen 1.0 (0.2) E.U./dL Ur Leukocyte Esterase Negative (NEGATIVE) Urine RBC None seen (0-5/HPF) Urine WBC 1-5/hpf (0-5/HPF) Ur Squamous Epith Cells 1-5 /hpf (0-5/HPF) Urine Bacteria Few (2-10) H (None) Ur Culture Indicated? Cult not indicated Vol Urine Centrifuged 10ml (spun) Stl C. cayetanensis PCR Not detected (Not Detect) Stool Rotavirus (PCR) Not detected (Not Detect) Stool Adenovirus (PCR) Not detected (Not Detect) Stool Astrovirus (PCR) Not detected (Not Detect) Stool Cryptosporidium PCR Not detected (Not Detect) Stl E.coli Shiga Tox PCR Not detected (Not Detect) St Sh/Enteroin Ecoli PCR Not detected (Not Detect) Stl Enterotoxigenic E PCR Not detected (Not Detect) Stool EPEC (PCR) Not detected (Not Detect) Stl E. histolytica PCR Not detected (Not Detect) Stool Giardia Lamblia PCR Not detected (Not Detect) Stool Sapovirus (PCR) Not detected (Not Detect) Stl P. shigelloides PCR Not detected (Not Detect) St Y.enterocolitica PCR Not detected (Not Detect) Stool Vibrio (PCR) Not detected (Not Detect) Stl Vibrio cholerae PCR Not detected (Not Detect) Stl Enteroaggr Ecoli PCR Not detected (Not Detect) Stl Norovirus GI/GII PCR Not detected (Not Detect) Campylobacter (PCR) Not detected (Not Detect) C. difficile Tox (PCR) Not detected (Not Detect) Salmonella (PCR) Not detected (Not Detect) MDM Narrative Medical decision making narrative: 28-year-old female presenting for nausea diarrhea bright red blood per rectum, she states that she completed a marathon earlier today, she states that during that time she started having a lot of diarrhea after the race, she states that after a few bowel movements started noticing some bright red blood per rectum but denies any pain. She states that she is worried this happened because she took for 200 mg Motrin it is during the race and is worried this contributed to the blood in her stool. She denies any true abdominal pain, does endorse some nausea but no vomiting. She denies any other symptoms at this time. Patient lab work with the only slight leukocytosis 12.7 most likely reactive secondary to patient completing a marathon, Chem panel otherwise unremarkable, urinalysis did show few bacteria however patient not complaining of any urinary symptoms therefore we will not treat for an acute urinary tract infection. Patient had GI panel performed which showed no findings. Patient will be sent home with symptomatic relief instructed to follow up with the primary care in outpatient setting she verbalized understanding of this agrees to being discharged home with outpatient follow up Discharge Plan Departure Patient Disposition: Home Clinical Impression: Diarrhea Activity Restrictions/Additional Instructions: Please follow up with the primary care doctor Please read the discharge instructions sheet carefully and bring all papers to all doctor follow-up visits, as it may contain information that your doctor may want to see. Disease processes change and evolve, if your symptoms worsen or if you develop any new symptoms that are concerning to you please return for evaluation. Your evaluation today does not show any evidence of any life-threatening/serious illnesses requiring admission to the hospital or surgery. Please follow-up with your doctor for re-evaluation in approximately 1 day. Seek immediate medical attention for any worrisome symptoms. *If you do not have a primary care provider please contact the [facility] Resource line at [phone]. They will ask some questions about your medical history and help get you set up with a doctor in the community. Prescriptions: No Action No Known Home Medications Referrals: [facility] [Primary Care Provider, Family Practice] Stand Alone Forms: Patient Portal/API
[2024-09-12 20:26] LABS: Add Manual Diff / Slide Review NO; Basophils Absolute Auto 0 /uL (0-100); Basophils Percent Auto 0.2 % (0-2); Eosinophils Absolute Auto 0 /uL (0-450); Hematocrit 40.4 % (36-46); Hemoglobin 13.6 g/dL (12.0-16.0); Lymphocytes Absolute Auto 600 /uL (1100-4500); Lymphocytes Percent Auto 4.5 % (25-40); Mean Corpuscular HGB Conc 33.6 % (30-36); Mean Corpuscular Hemoglobin 28.1 PG (26-34); Mean Corpuscular Volume 83.6 fL (80-100); Monocytes Absolute Auto 300 /uL (0-900); Monocytes Percent Auto 2.5 % (3-14); Neutrophils Absolute Auto 11800 /uL (1500-7000); Neutrophils Percent Auto 92.8 % (50-75); Platelet Count 234 X10^3/uL (150-400); Red Blood Cell Count 4.83 X10^6/uL (4.0-5.2); Red Cell Distribution Width 12.6 % (11.6-14.8); White Blood Cell Count 12.7 X10^3/uL (4.5-11.0)
[2024-09-12 20:44] LABS: Alanine Aminotransferase 40 IU/L (<35); Albumin 4.7 g/dL (3.5-5.0); Albumin Globulin Ratio 1.3 (1.0-2.8); Alkaline Phosphatase 47 U/L (38-126); Aspartate Aminotransferase 99 IU/L (14-36); BUN Creatinine Ratio 25.4 (6-22); Blood Urea Nitrogen 18 mg/dL (7-17); Calcium 9.6 mg/dL (8.4-10.2); Carbon Dioxide 23 mmol/L (22-32); Chloride 104 mmol/L (98-107); Estimated Glomerular Filt Rate > 60 mL/min (>60); Globulin 3.5 g/dL (1.7-4.1); Glucose 129 mg/dL (70-99); HEMOLYSIS < 15 (0-50); Lipase 31 U/L (23-300); Magnesium 1.8 mg/dL (1.6-2.3); Potassium 4.3 mmol/L (3.4-5.1); Sodium 136 mmol/L (137-145); Total Protein 8.2 g/dL (6.3-8.2)
[2024-09-12 20:50] VITALS: BP 124/80; PULSE 66; O2SAT 99
[2024-09-12 20:57] LABS: Adenovirus F 40/41 Not Detected (Not Detect); Astrovirus Not Detected (Not Detect); Campylobacter Not Detected (Not Detect); Clostridium difficile toxin AB Not Detected (Not Detect); Cryptosporidium Not Detected (Not Detect); Cyclospora cayetanensis Not Detected (Not Detect); Entamoeba histolytica Not Detected (Not Detect); Enteroaggregative E.coli Not Detected (Not Detect); Enteropathogenic E.coli Not Detected (Not Detect); Enterotoxigenic E.coli It/st Not Detected (Not Detect); Giardia lamblia Not Detected (Not Detect); Norovirus GI/GII Not Detected (Not Detect); Plesiomonsa shigelloides Not Detected (Not Detect); Rotavirus A Not Detected (Not Detect); Salmonella Not Detected (Not Detect); Sapovirus Not Detected (Not Detect); Shiga-like toxin-prod E.coli Not Detected (Not Detect); Shigella/Enteroinvasive E.coli Not Detected (Not Detect); Vibrio Not Detected (Not Detect); Vibrio cholerae Not Detected (Not Detect); Yersinia enterocolitica Not Detected (Not Detect)
[2024-09-12] MEDS: ONDANSETRON 4 MG/2 ML INJ IV (20:57)
[2024-09-12] MEDS: SODIUM CHLORIDE 0.9% 1,000 ML 1000 ML IV (20:57)
[2024-09-12] MEDS: FAMOTIDINE 20 MG/2 ML VIAL IV (20:57)
[2024-09-12 20:59] VITALS: PULSE 69; O2SAT 98
[2024-09-12 21:00] VITALS: BP 115/72; PULSE 66; RESP 16; O2SAT 97
[2024-09-12 21:30] VITALS: O2SAT 100
[2024-09-12 21:31] VITALS: BP 123/75; PULSE 56; O2SAT 100
[2024-09-12] MEDS: ONDANSETRON 4 MG ODT PREPACK 1 BOTTLE MISC (21:44)
== END 2024-09-12 21:59 | disposition home or self-care (01) ==
PROVIDERS: Emergency Provider Student in an Organized Health Care Education/Training Program
DX: R19.7 Diarrhea, unspecified (principal)
CPT/HCPCS: 36415; 80053; 81001; 83690; 83735; 85025; 87507; 96361; 96374; 96375; 99284; J2405

== ENCOUNTER → 2024-10-16 11:18 | Outpatient (CLI) | payer OTHER, SELFPAY ==
[2024-10-16 15:09] LABS: Follicle Stimulating Hormone 1.67 mIU/mL
[2024-10-16 15:24] LABS: Estradiol, Total 130.1 pg/mL
== END ==
PROVIDERS: PCP Nurse Practitioner Family; Referring Provider Obstetrics & Gynecology; Visit Provider Obstetrics & Gynecology
DX: N95.1 Menopausal and female climacteric states (principal)
CPT/HCPCS: 36415; 82670; 83001; 83002

== ENCOUNTER → 2025-02-08 08:36 | Outpatient (CLI) | payer OTHER, SELFPAY ==
--- NOTE | 2025-02-08 08:39 | DI.US.S_ITS ---
PROCEDURE: US PELVIC COMPLETE
== END ==
PROVIDERS: PCP Nurse Practitioner Family; Referring Provider Obstetrics & Gynecology; Visit Provider Obstetrics & Gynecology
DX: N83.201 Unspecified ovarian cyst, right side (principal); N83.202 Unspecified ovarian cyst, left side; R10.20 Pelvic and perineal pain unspecified side; G89.29 Other chronic pain
CPT/HCPCS: 76830; 76856